=== PATIENT | male | born 1945 | race African-American/Black ===

== ENCOUNTER → 2017-01-24 | Outpatient (CLI) | payer MEDICARE, MEDICAID | END | disposition home or self-care (01) | LOC: CT 09:52 | PROVIDERS: ATTEND Neurological Surgery | DX: M47.813 Spondylosis without myelopathy or radiculopathy, cervicothoracic region (principal); M50.223 Other cervical disc displacement at C6-C7 level; M50.222 Other cervical disc displacement at C5-C6 level; M50.221 Other cervical disc displacement at C4-C5 level; M12.88 Other specific arthropathies, not elsewhere classified, other specified site | CPT/HCPCS: 72052; 72125 ==